=== PATIENT | male | born 1955 | race Caucasian/White ===

== ENCOUNTER 2021-10-15 11:15 | Outpatient (CLI) | payer BC, SELFPAY ==
[2021-10-15 11:33] VITALS: BP 158/87; PULSE 95; RESP 16; TEMP 36.6; O2SAT 99; BMI 35.7
[2021-10-15] MEDS: 0.9% Saline Lock 10 ML Syringe IV (11:45)
[2021-10-15 12:50] VITALS: BP 115/79; PULSE 81; RESP 16; TEMP 36.5; O2SAT 98
[2021-10-15 13:50] VITALS: BP 140/83; PULSE 81; RESP 16; TEMP 36.6; O2SAT 98
== END 2021-10-15 23:59 | disposition home or self-care (01) ==
LOC: MS3OUT 11:15 → MS3 11:15
PROVIDERS: Referring Provider Nurse Practitioner Adult Health; Visit Provider Nurse Practitioner Adult Health
DX: Z23 Encounter for immunization (principal); U07.1 COVID-19
CPT/HCPCS: J7050; M0245; Q0245; A4216

== ENCOUNTER 2021-11-16 11:00 | Outpatient (RCR) | payer BC, SELFPAY | END 2021-11-22 23:59 | LOC: DC 11:00 | PROVIDERS: Referring Provider Nurse Practitioner Family; Visit Provider Nurse Practitioner Family | DX: E66.9 Obesity, unspecified (principal); E11.3299 Type 2 diabetes mellitus with mild nonproliferative diabetic retinopathy without macular edema, unspecified eye; Z68.36 Body mass index [BMI] 36.0-36.9, adult | CPT/HCPCS: 97802; 97803 ==

== ENCOUNTER 2021-12-01 09:29 | Outpatient (RCR) | payer BC, SELFPAY | END 2021-12-23 23:59 | LOC: DC 09:29 | PROVIDERS: PCP Family Medicine; Referring Provider Nurse Practitioner Family; Visit Provider Nurse Practitioner Family | DX: E66.9 Obesity, unspecified (principal); Z68.36 Body mass index [BMI] 36.0-36.9, adult; E11.3299 Type 2 diabetes mellitus with mild nonproliferative diabetic retinopathy without macular edema, unspecified eye | CPT/HCPCS: 97803 ==

== ENCOUNTER 2022-01-11 09:55 | Outpatient (RCR) | payer BC, SELFPAY | END 2022-01-22 23:59 | LOC: DC 09:55 | PROVIDERS: PCP Family Medicine; Referring Provider Nurse Practitioner Family; Visit Provider Nurse Practitioner Family | DX: E66.9 Obesity, unspecified (principal); Z68.36 Body mass index [BMI] 36.0-36.9, adult; E11.3299 Type 2 diabetes mellitus with mild nonproliferative diabetic retinopathy without macular edema, unspecified eye | CPT/HCPCS: 97803 ==